=== PATIENT | male | born 1995 | race African-American/Black ===

== ENCOUNTER 2020-10-26 22:06 | Inpatient (IN) ==
[2020-10-26] MEDS ORDERED: DEXTROSE 50% 25 GM/50 ML SYRINGE IV ONE (22:17)
[2020-10-26] MEDS ORDERED: HALOPERIDOL 5 MG/ML AMP ONE (22:19)
[2020-10-26] MEDS ORDERED: LORazepam 2 MG/1 ML VIAL IV ONE (22:32)
[2020-10-26] MEDS ORDERED: LORazepam 2 MG/1 ML VIAL ONE (22:37)
[2020-10-26] MEDS ORDERED: MIDAZOLAM 10 MG/2 ML VIAL ONE (23:37)
[2020-10-26 23:42] LABS: ABG Base Excess -0.6 MMOL/L (-2.5-2.5); ABG HCO3 23.9 MMOL/L (20-26); ABG Oxygen Saturation 99.3 % (95-100); ABG PCO2 55.7 MM HG (35-48); ABG TCO2 24.6 MMOL/L (23-27); Allen Test Positive; Pt O2 Delivery Device Ventilator
[2020-10-26 23:57] LABS: Basophils # 0.1 10*3/uL (0.0-0.2); Basophils % 0.4 % (0.0-0.8); Hemoglobin 10.4 GM/DL (14.0-18.0); Immature Granulocytes % 3.5 %; Immature Granulocytes Absolute 0.87 #; Lymphocytes # 0.6 10*3/uL (1.4-4.0); Lymphocytes % 2.3 % (21.2-54.2); Mean Corpuscular HGB Conc 31.5 GM/DL (32-36); Mean Corpuscular Volume 91.4 FL (87-102); Monocytes % 5.6 % (1.7-12.7); NRBC # 0.02 10*3/uL; Neutrophils % 88.2 % (38.7-73.9); Platelet Count 130 T/CUMM (130-400); Red Blood Count 3.61 MC/CUMM (3.8-5.5); Red Cell Distribution Width 18.6 % (9.3-17.3); White Blood Count 24.6 T/CUMM (4-12)
[2020-10-27] MEDS ORDERED: VANCOMYCIN INJ 1,000 MG in SODIUM CHLORIDE 0.9% 250 ML IV STA (00:14)
[2020-10-27] MEDS ORDERED: CEFEPIME 2,000 MG in SODIUM CHLORIDE 0.9% 100 ML IV STA (00:14)
[2020-10-27 00:16] LABS: Alanine Aminotransferase 13 U/L (16-61); Alkaline Phosphatase 241 U/L (45-117); Aspartate Amino Transferase 80 U/L (0-37); Blood Urea Nitrogen 68 MG/DL (7-18); Carbon Dioxide 19 MMOL/L (21-32); Estimated Glom Filtration Rate 0 ML/MIN; Glucose 65 MG/DL (74-106); Osmolality,Calculated 292.7 MOS/KG (273-304); Potassium 5.5 MMOL/L (3.5-5.1); Sodium 138 MMOL/L (136-145); Total Protein 5.7 G/DL (6.4-8.2)
[2020-10-27] MEDS ORDERED: LIDOCAINE 1%/EPI INJ 20 ML VIAL ONE (00:31)
[2020-10-27] MEDS ORDERED: BUPIVACAINE MPF 0.25% 30 ML VIAL ONE (00:31)
[2020-10-27] MEDS ORDERED: PHENYLEPHRINE 1 MG/10 ML SYRINGE IV ONE (00:35)
[2020-10-27] MEDS ORDERED: HEPARIN 5,000 UNIT/1 ML VIAL ONE (00:39)
[2020-10-27] MEDS ORDERED: KETAMINE 500 MG/10 ML VIAL ONE (00:43)
[2020-10-27] MEDS ORDERED: methylPREDNISolone SOD SUC 125 MG/2 ML VIAL ONE (00:49)
[2020-10-27] MEDS ORDERED: ALBUMIN 5% 12.5 GM/250 ML VIAL IV ONE (00:50)
[2020-10-27] MEDS ORDERED: SODIUM CHLORIDE 0.9% 1,000 ML IV ONE (00:53)
[2020-10-27] MEDS ORDERED: SODIUM CHLORIDE 0.9% 100 ML IV ONE (00:53)
[2020-10-27] MEDS ORDERED: PHENYLEPHRINE 10 MG/1 ML VIAL IV ONE (00:53)
[2020-10-27] MEDS ORDERED: SODIUM CHLORIDE 0.9% 1,000 ML IV PRN (01:04)
[2020-10-27] MEDS ORDERED: fentaNYL 100 MCG/2 ML VIAL ONE (01:22)
[2020-10-27] MEDS ORDERED: PHENYLEPHRINE DRIP 40 MG/250 ML PREMIX IV ONE (01:57)
[2020-10-27] MEDS: PHENYLEPHRINE DRIP 40 MG/250 ML PREMIX IV PRN ×4 (02:20→18:42)
[2020-10-27] MEDS ORDERED: ETOMIDATE 20 MG/10 ML VIAL IV ONE (04:03)
[2020-10-27] MEDS ORDERED: ROCURONIUM 100 MG/10 ML VIAL IV ONE (04:04)
[2020-10-27 04:12] LABS: Basophils # 0.1 10*3/uL (0.0-0.2); Basophils % 0.5 % (0.0-0.8); Hematocrit 27.5 VOL% (42.0-52.0); Hemoglobin 8.9 GM/DL (14.0-18.0); Immature Granulocytes % 2.4 %; Immature Granulocytes Absolute 0.56 #; Lymphocytes # 0.5 10*3/uL (1.4-4.0); Lymphocytes % 2.3 % (21.2-54.2); Mean Corpuscular HGB Conc 32.4 GM/DL (32-36); Mean Corpuscular Volume 90.2 FL (87-102); Mean Platelet Volume 10.4 FL (9.6-12.0); Monocytes % 4.5 % (1.7-12.7); Neutrophils % 90.3 % (38.7-73.9); Platelet Count 133 T/CUMM (130-400); Red Blood Count 3.05 MC/CUMM (3.8-5.5); Red Cell Distribution Width 18.6 % (9.3-17.3); White Blood Count 23.8 T/CUMM (4-12)
[2020-10-27 04:18] LABS: Band Neutrophils 10 % (0-10); Burr Cells Slight; Hypochromasia Slight; Lymphocytes 7 % (20-55); Microcytosis Slight; Ovalocytes Slight; Platelet Estimate Normal; Segmented Neutrophils 79 % (50-85); Total Cells Counted 100
[2020-10-27 04:26] LABS: Calcium 10.3 MG/DL (8.5-10.1); Osmolality,Calculated 292.7 MOS/KG (273-304); Potassium 5.6 MMOL/L (3.5-5.1)
[2020-10-27] MEDS ORDERED: GLUCAGON 1 MG VIAL IM PRN (04:29)
[2020-10-27 04:32] LABS: Band Neutrophils 1 % (0-10); Hypochromasia 1+; Lymphocytes 3 % (20-55); Microcytosis 1+; Ovalocytes Slight; Platelet Estimate Adequate; Segmented Neutrophils 90 % (50-85); Total Cells Counted 100
[2020-10-27] MEDS: DEXTROSE 50% 25 GM/50 ML VIAL IV PRN ×2 (04:35→16:32)
[2020-10-27 04:45] LABS: ABG Base Excess -0.3 MMOL/L (-2.5-2.5); ABG HCO3 24.9 MMOL/L (20-26); ABG Oxygen Saturation 99.1 % (95-100); ABG PCO2 43.4 MM HG (35-48); ABG PH 7.377 (7.35-7.45); ABG PO2 217.1 MM HG (80-95); ABG TCO2 26.3 MMOL/L (23-27)
[2020-10-27] MEDS ORDERED: CEFEPIME 2,000 MG in SODIUM CHLORIDE 0.9% 100 ML IV ONE (06:00)
[2020-10-27] MEDS ORDERED: VANCOMYCIN INJ 1,000 MG in SODIUM CHLORIDE 0.9% 250 ML IV ONE (06:00)
[2020-10-27 08:40] LABS: Hematocrit 28.5 VOL% (42.0-52.0); Hemoglobin 8.7 GM/DL (14.0-18.0)
[2020-10-27] MEDS: HYDROCORTISONE 100 MG VIAL IV SCH ×3 (09:05→21:44)
[2020-10-27] MEDS: SODIUM CHLORIDE 0.9% 1,000 ML IV SCH (09:07)
[2020-10-27 09:58] LABS: HIV Antigen/Antibody Result Nonreactive (Nonreactive); Hepatitis B Core IgM Quant 0.07 Index; Hepatitis B Surface Ag Quant < 0.10 Index; Hepatitis B Surface Ag Result Non-Reactive (NonReactive); Hepatitis C Virus Ab Quant 0.08 Index; Hepatitis C Virus Ab Result Non-Reactive (NonReactive)
[2020-10-27 12:01] LABS: Hematocrit 25.2 VOL% (42.0-52.0); Hemoglobin 8.1 GM/DL (14.0-18.0)
[2020-10-27 16:27] LABS: Hematocrit 23.5 VOL% (42.0-52.0); Hemoglobin 7.4 GM/DL (14.0-18.0)
[2020-10-27] MEDS ORDERED: SODIUM CHLORIDE 0.9% 500 ML IV ONE (16:27)
[2020-10-27 17:20] LABS: INR 1.8; PT Patient Result 18.8 SECS (10.5-12.0)
[2020-10-27 17:24] LABS: Partial Thromboplastin Time 67.6 SECS (23.9-33.8)
[2020-10-27] MEDS: PHENYLEPHRINE INJ 160 MG in SODIUM CHLORIDE 0.9% 234 ML IV PRN (21:23)
[2020-10-27 22:55] LABS: Hematocrit 29.6 VOL% (42.0-52.0); Hemoglobin 9.6 GM/DL (14.0-18.0)
[2020-10-27 22:57] VITALS: BP 108/60
[2020-10-28 01:44] LABS: Basophils % 0.1 % (0.0-0.8); Immature Granulocytes % 4.7 %; Immature Granulocytes Absolute 1.44 #; Lymphocytes # 3.2 10*3/uL (1.4-4.0); Lymphocytes % 10.3 % (21.2-54.2); Mean Corpuscular HGB Conc 31.9 GM/DL (32-36); Mean Corpuscular Volume 93.1 FL (87-102); Mean Platelet Volume 11.8 FL (9.6-12.0); Monocytes % 4.7 % (1.7-12.7); Neutrophils % 80.2 % (38.7-73.9); Platelet Count 98 T/CUMM (130-400); Red Blood Count 1.75 MC/CUMM (3.8-5.5); Red Cell Distribution Width 18.2 % (9.3-17.3); White Blood Count 30.9 T/CUMM (4-12)
[2020-10-28 01:59] LABS: ABG Base Excess -9.9 MMOL/L (-2.5-2.5); ABG HCO3 16.4 MMOL/L (20-26); ABG Oxygen Saturation 99.7 % (95-100); ABG PCO2 36.8 MM HG (35-48); ABG PH 7.258 (7.35-7.45); ABG TCO2 15.7 MMOL/L (23-27)
[2020-10-28 02:00] LABS: Bilirubin,Total 1.2 MG/DL (0.2-1.0); Calcium 8.2 MG/DL (8.5-10.1); Osmolality,Calculated 310.3 MOS/KG (273-304); Potassium 5.7 MMOL/L (3.5-5.1)
[2020-10-28 02:06] LABS: Hematocrit 16.3 VOL% (42.0-52.0)
[2020-10-28 02:07] LABS: Hemoglobin 5.2 GM/DL (14.0-18.0)
[2020-10-28] MEDS ORDERED: SODIUM BICARBONATE 50 MEQ/50 ML VIAL IV ONE (02:25)
[2020-10-28] MEDS ORDERED: LIDOCAINE 1%/EPI INJ 20 ML VIAL ONE (02:31)
[2020-10-28] MEDS ORDERED: TISSUE ADHESIVE 1 EACH APPLICATOR TOP ONE (02:31)
[2020-10-28] MEDS ORDERED: BUPIVACAINE MPF 0.25% 30 ML VIAL ONE (02:31)
[2020-10-28] MEDS ORDERED: HEPARIN 5,000 UNIT/1 ML VIAL ONE (02:31)
[2020-10-28] MEDS ORDERED: ALBUMIN 5% 25.0 GM/500 ML VIAL IV ONE (03:00)
[2020-10-28 03:30] LABS: Hematocrit 37.8 VOL% (42.0-52.0); Hemoglobin 12.4 GM/DL (14.0-18.0); Immature Granulocytes % 4.6 %; Immature Granulocytes Absolute 1.94 #; Lymphocytes # 2.9 10*3/uL (1.4-4.0); Lymphocytes % 6.9 % (21.2-54.2); Mean Corpuscular HGB Conc 32.8 GM/DL (32-36); Mean Corpuscular Volume 92.9 FL (87-102); Mean Platelet Volume 12.2 FL (9.6-12.0); Monocytes % 3.9 % (1.7-12.7); NRBC # 0.09 10*3/uL; Neutrophils % 84.6 % (38.7-73.9); Platelet Count 102 T/CUMM (130-400); Red Blood Count 4.07 MC/CUMM (3.8-5.5); Red Cell Distribution Width 15.8 % (9.3-17.3)
[2020-10-28 03:32] LABS: White Blood Count 42.1 T/CUMM (4-12)
[2020-10-28] MEDS ORDERED: PHENYLEPHRINE 1 MG/10 ML SYRINGE IV ONE (03:35)
[2020-10-28 03:50] LABS: Band Neutrophils 3 % (0-10); Lymphocytes 11 % (20-55); Platelet Estimate Decreased; Segmented Neutrophils 83 % (50-85); Total Cells Counted 100
[2020-10-28 03:56] LABS: Bilirubin,Total 2.2 MG/DL (0.2-1.0); Calcium 8.7 MG/DL (8.5-10.1); Osmolality,Calculated 308.6 MOS/KG (273-304); Total Protein 5.2 G/DL (6.4-8.2)
[2020-10-28 04:02] LABS: Lymphocytes 7 % (20-55); Platelet Estimate Decreased; Segmented Neutrophils 88 % (50-85); Total Cells Counted 100
[2020-10-28] MEDS ORDERED: ROCURONIUM 50 MG/5 ML VIAL IV ONE (04:06)
[2020-10-28 06:22] LABS: ABG Base Excess -6.4 MMOL/L (-2.5-2.5); ABG HCO3 19.3 MMOL/L (20-26); ABG PCO2 59.2 MM HG (35-48)
[2020-10-28 06:24] LABS: ABG PH 7.193 (7.35-7.45)
[2020-10-28 06:25] LABS: Eosinophils % 0.1 % (0.00-10.9); Hematocrit 33.8 VOL% (42.0-52.0); Hemoglobin 11.3 GM/DL (14.0-18.0); Immature Granulocytes % 4.7 %; Immature Granulocytes Absolute 1.92 #; Lymphocytes # 2.1 10*3/uL (1.4-4.0); Lymphocytes % 5.2 % (21.2-54.2); Mean Corpuscular HGB Conc 33.4 GM/DL (32-36); Mean Corpuscular Volume 91.8 FL (87-102); Mean Platelet Volume 12.5 FL (9.6-12.0); Monocytes % 3.8 % (1.7-12.7); NRBC # 0.07 10*3/uL; Neutrophils % 86.2 % (38.7-73.9); Platelet Count 97 T/CUMM (130-400); Red Blood Count 3.68 MC/CUMM (3.8-5.5); Red Cell Distribution Width 15.9 % (9.3-17.3)
[2020-10-28 06:27] LABS: White Blood Count 40.8 T/CUMM (4-12)
[2020-10-28] MEDS: PHENYLEPHRINE INJ 160 MG in SODIUM CHLORIDE 0.9% 234 ML IV PRN ×3 (06:31→21:00)
[2020-10-28 06:37] LABS: Calcium 9.1 MG/DL (8.5-10.1); Osmolality,Calculated 308.6 MOS/KG (273-304); Potassium 5.3 MMOL/L (3.5-5.1)
[2020-10-28] MEDS: HYDROCORTISONE 100 MG VIAL IV SCH ×3 (06:39→22:44)
[2020-10-28 06:42] LABS: Band Neutrophils 2 % (0-10); Hypochromasia 1+; Lymphocytes 5 % (20-55); Microcytosis 1+; Ovalocytes Slight; Platelet Estimate Decreased; Segmented Neutrophils 89 % (50-85); Total Cells Counted 100
[2020-10-28] MEDS ORDERED: VANCOMYCIN INJ 1,500 MG in SODIUM CHLORIDE 0.9% 500 ML IV ONE (08:30)
[2020-10-28 08:43] LABS: ABG Base Excess -1.2 MMOL/L (-2.5-2.5); ABG HCO3 23.4 MMOL/L (20-26); ABG Oxygen Saturation 99.7 % (95-100); ABG PCO2 42.1 MM HG (35-48); ABG PH 7.366 (7.35-7.45); ABG TCO2 21.7 MMOL/L (23-27)
[2020-10-28] MEDS: SODIUM CHLORIDE 0.9% 1,000 ML IV SCH ×2 (08:54→13:38)
[2020-10-28] MEDS ORDERED: VANCOMYCIN INJ 500 MG in SODIUM CHLORIDE 0.9% 100 ML IV PRN (11:03)
[2020-10-28] MEDS ORDERED: MIDAZOLAM 100 MG in SODIUM CHLORIDE 0.9% 80 ML IV PRN (11:57)
[2020-10-28 12:18] LABS: Hematocrit 30.3 VOL% (42.0-52.0); Hemoglobin 10.2 GM/DL (14.0-18.0)
[2020-10-28] MEDS ORDERED: PANTOPRAZOLE 40 MG VIAL IV SCH (16:00)
[2020-10-28] MEDS ORDERED: SUCCINYLCHOLINE 200 MG/10 ML VIAL IV ONE (18:10)
[2020-10-28] MEDS ORDERED: SUCCINYLCHOLINE 200 MG/10 ML VIAL ONE (18:10)
[2020-10-28 19:31] LABS: ABG Base Excess -5.1 MMOL/L (-2.5-2.5); ABG HCO3 19.7 MMOL/L (20-26); ABG Oxygen Saturation 59.9 % (95-100); ABG PCO2 61.7 MM HG (35-48); ABG PO2 41.5 MM HG (80-95); ABG TCO2 22.6 MMOL/L (23-27)
[2020-10-28] MEDS: NOREPINEPHRINE 16 MG in SODIUM CHLORIDE 0.9% 234 ML IV PRN (19:35)
[2020-10-28 19:38] LABS: ABG PH 7.195 (7.35-7.45)
[2020-10-28] MEDS ORDERED: SODIUM CHLORIDE 0.9% 500 ML IV ONE (20:00)
[2020-10-28] MEDS ORDERED: SODIUM CHLORIDE 0.9% 1,000 ML IV PRN (20:36)
[2020-10-28] MEDS: DEXTROSE 50% 25 GM/50 ML VIAL IV PRN (23:42)
[2020-10-28 23:49] LABS: ABG Base Excess -6.5 MMOL/L (-2.5-2.5); ABG HCO3 19.1 MMOL/L (20-26); ABG Oxygen Saturation 99.5 % (95-100); ABG PCO2 36.6 MM HG (35-48); ABG PH 7.322 (7.35-7.45); ABG TCO2 16.9 MMOL/L (23-27)
[2020-10-29] MEDS: NOREPINEPHRINE 16 MG in SODIUM CHLORIDE 0.9% 234 ML IV PRN ×2 (01:20→05:50)
[2020-10-29 03:51] LABS: Basophils # 0.1 10*3/uL (0.0-0.2); Basophils % 0.3 % (0.0-0.8); Hematocrit 27.9 VOL% (42.0-52.0); Hemoglobin 9.3 GM/DL (14.0-18.0); Immature Granulocytes % 5.4 %; Immature Granulocytes Absolute 2.13 #; Lymphocytes # 1.5 10*3/uL (1.4-4.0); Lymphocytes % 3.9 % (21.2-54.2); Mean Corpuscular HGB Conc 33.3 GM/DL (32-36); Mean Corpuscular Volume 90.9 FL (87-102); Mean Platelet Volume 12.4 FL (9.6-12.0); NRBC # 0.26 10*3/uL; Neutrophils % 85.4 % (38.7-73.9); Red Blood Count 3.07 MC/CUMM (3.8-5.5); Red Cell Distribution Width 17.3 % (9.3-17.3); White Blood Count 39.7 T/CUMM (4-12)
[2020-10-29 03:55] LABS: Platelet Count 73 T/CUMM (130-400)
[2020-10-29 04:05] LABS: Albumin 1.8 G/DL (3.4-5.0); Bilirubin,Total 1.6 MG/DL (0.20-1.00); Calcium 8.9 MG/DL (8.5-10.1); Osmolality,Calculated 335.6 MOS/KG (273-304); Potassium 5.3 MMOL/L (3.5-5.1); Total Protein 4.6 G/DL (6.4-8.2)
[2020-10-29 04:32] LABS: ABG Base Excess -10.1 MMOL/L (-2.5-2.5); ABG HCO3 16.2 MMOL/L (20-26); ABG Oxygen Saturation 98.8 % (95-100); ABG PCO2 37.2 MM HG (35-48); ABG PH 7.257 (7.35-7.45); ABG PO2 397.5 MM HG (80-95); ABG TCO2 17.3 MMOL/L (23-27)
[2020-10-29 04:36] LABS: Hypochromasia Slight; Microcytosis Slight; Platelet Estimate Decreased
[2020-10-29] MEDS: SODIUM CHLORIDE 0.9% 1,000 ML IV SCH (07:14)
== END 2020-10-29 05:50 | disposition expired | DRG 252 ==
LOC: N.ED 22:06 → N.CC 10-27 00:25 → SUATTDRO 10-27 01:59
PROVIDERS: ADMIT Internal Medicine; ATTEND Internal Medicine
PROC: VAVDCFI (2020-10-28 02:45)